=== PATIENT | male | born 1990 | race Caucasian/White ===

== ENCOUNTER 2018-03-04 23:06 | Emergency (ER) | payer OTHER, MEDICAID, SELFPAY ==
[2018-03-04 23:11] VITALS: BP 120/71; PULSE 107; RESP 18; TEMP 36.9; O2SAT 99
--- NOTE | 2018-03-04 23:14 | DI.RAD.S_ITS ---
PROCEDURE: XR CHEST 1V INDICATIONS: aspiration? TECHNIQUE: One view of the chest was acquired. COMPARISON: [facility], , CHEST 2 VIEW, 07/08/2017, 15:32. FINDINGS: Surgical changes and devices: None. Lungs and pleura: No pleural effusions or pneumothorax. Lungs are clear. Mediastinum: Mediastinal contours appear normal. Heart size is normal. Bones and chest wall: No suspicious bony lesions. Overlying soft tissues appear unremarkable. IMPRESSION: No acute process. Dictated by: Sherie Blair M.D. on 03/05/2018 at 9:29 Approved by: Sherie Blair M.D. on 03/05/2018 at 9:30
[2018-03-04 23:20] LABS: Hemoglobin 16.1 g/dL (13.5-17.5); Mean Corpuscular HGB Conc 34.3 % (30-36); Mean Corpuscular Hemoglobin 31.3 PG (26-34); Mean Corpuscular Volume 91.5 fL (80-100); Platelet Count 294 X10^3/uL (150-400); Red Blood Cell Count 5.14 X10^6/uL (4.5-5.9); Red Cell Distribution Width 12.2 % (11.6-14.8); White Blood Cell Count 10.1 X10^3/uL (4.5-11.0)
[2018-03-04 23:24] VITALS: BP 120/71; PULSE 107; RESP 18; TEMP 36.9; O2SAT 99
[2018-03-04 23:28] LABS: Alanine Aminotransferase 46 IU/L (21-72); Albumin 4.9 g/dL (3.5-5.0); Albumin Globulin Ratio 1.6 (1.0-2.8); Alkaline Phosphatase 50 U/L (38-126); Aspartate Aminotransferase 35 IU/L (17-59); BUN Creatinine Ratio 14.4 (6-22); Bilirubin Total 0.4 mg/dL (0.2-1.3); Blood Urea Nitrogen 13 mg/dL (9-20); Calcium 9.6 mg/dL (8.4-10.2); Carbon Dioxide 21 mmol/L (22-32); Chloride 110 mmol/L (98-107); Estimated Glomerular Filt Rate > 60.0 mL/min (>60); Glucose 105 mg/dL (70-100); HEMOLYSIS 30 (0-50); Potassium 3.7 mmol/L (3.4-5.1); Sodium 150 mmol/L (137-145); Total Protein 7.9 g/dL (6.3-8.2)
--- NOTE | 2018-03-04 23:28 | PC.NURSE ---
Pts girlfriend stated that 911 was called because when someone attempted to wake pt up he would fall back asleep. Pt has been drinking a lot per pts girlfriend.
[2018-03-04 23:29] VITALS: BP 122/66; PULSE 108; RESP 18; O2SAT 98
[2018-03-04 23:30] LABS: Ethanol (ETOH) 248 mg/dL
[2018-03-04 23:35] LABS: Urine Amphetamines Negative (Negative); Urine Barbiturates Negative (Negative); Urine Benzodiazepines Negative (Negative); Urine Cocaine Negative (Negative); Urine MDMA Negative (Negative); Urine Methadone Negative (Negative); Urine Methamphetamines Negative (Negative); Urine Morphine/Opi cutoff 2000 Negative (Negative); Urine Oxycodone Negative (Negative); Urine Phencyclidine Negative (Negative); Urine Tetrahydrocannabinol Negative (Negative); Urine Tricyclic Antidepressant Negative (Negative)
[2018-03-05] VITALS (14 sets, daily range): BP systolic 97–113; BP diastolic 49–70; PULSE 81–108; RESP 18–21; O2SAT 96–100
[2018-03-05] MEDS: SODIUM CHLORIDE 0.9% 1,000 ML 1000 ML IV (02:05)
--- NOTE | 2018-03-05 02:08 | PC.NURSE ---
pt medicated with zofran by OSMIN Cho.
--- NOTE | 2018-03-05 06:49 | ED.ALCOHOL ---
HPI - Alcohol General Chief Complaint: Toxicology Problem Stated Complaint: ETOH History of Present Illness HPI narrative: HPI 27-year-old male presents by EMS after reportedly consuming a large amount of alcohol or libertarian and being found unresponsive any bathroom, patient was intermittently and marginally responsive to voice and light touch per EMS, in the ambulance the patient apparently became combative and was given intramuscular ketamine with affect. Upon arrival the patient has sonorous respirations and is unresponsive to voice in touch. M/S/F/SocHx notable for: no known per EMS (obtain from bystanders/family). ROS: unable to obtain secondary to altered mentation. Exam Gen: nontoxic-appearing, no grossly apparent abnormalities. HEENT: NC, AT, PEERL, EOMI. Resp: coarse breath sounds bilaterally, otherwise clear to auscultation bilaterally, normal work of breathing, no accessory muscle usage. Card: Regular rate and rhythm with no murmurs, rubs, or gallops, extremities warm and well perfused. GI: no palpable abnormalities, no distention, no rebound, no guarding. : No suprapubic tenderness to palpation. MSK: No visible deformities, strength and tone without visually appreciable deficit. C, T, L spine without palpable abnormalities. Appendicular skeleton without palpable or visible abnormalities. All extremities warm and well perfused. Skin: Normal color with no visible lesions. Neuro: sedated Psych: unable to assess Labs / Imaging: WBC 10.1, HB 16.1, sodium 150, potassium 3.7, glucose 105, EtOH 248, UDS negative. CXR: No acute cardiopulmonary disease process. No focal infiltrate, cardiomegaly, rib fractures, or mediastinal widening, lung markings extend to the periphery bilaterally and there are no deep sulci. Radiologist's read pending. MDM Previous chart, nursing note, labs, imaging, and vitals reviewed. A: 27-year-old male presents by EMS after reportedly consuming a large amount of alcohol or libertarian and being found unresponsive any bathroom, patient was intermittently and marginally responsive to voice and light touch per EMS, in the ambulance the patient apparently became combative and was given intramuscular ketamine with effect. Labs consistent with reported toxidrome. Patient observed in the ED for 7.5 hours with clearance of the toxidrome. Patient clinically sober, and well-appearing at the time of discharge, denies any complaints. Impression: EtOH intoxication (please reference below for remainder of encounter information) Related Data Previous Rx's Medication Instructions Recorded prednisone 20 mg PO BID #10 tab 10/20/17 promethazine-codeine 5 - 10 ml PO Q4HP PRN #120 ml 10/20/17 Allergies Allergy/AdvReac Type Severity Reaction Status Date / Time amoxicillin [AMOXICILLIN] Allergy Severe HIVES Verified 03/04/18 23:24 Penicillins [PENICILLINS] Allergy Unknown Verified 03/04/18 23:24 Exam Initial Vital Signs Initial Vital Signs: Vital Signs Temperature 98.5 F 03/04/18 23:11 Pulse Rate 107 H 03/04/18 23:11 Respiratory Rate 18 03/04/18 23:11 Blood Pressure 120/71 03/04/18 23:11 Pulse Oximetry 99 03/04/18 23:11 Course Orders Ordered: ED Orders 03/04/18 22:50 Complete Blood Count NO DIFF Stat Comprehensive Metabolic Panel Stat Ethanol (ETOH) Stat 03/04/18 23:14 XR chest 1V Stat 03/04/18 23:25 Rapid Drug Screen, Urine Stat Discontinued Medications Sodium Chloride (Normal Saline 0.9%) 1,000 mls @ 1,000 mls/hr IV BOLUS ONE Stop: 03/05/18 02:44 Last Infusion: 03/05/18 04:00 Dose: 0 mls/hr Admin: 03/05/18 02:05 Dose: 1,000 mls/hr Vital Signs - 8 hr 03/04/18 23:11 03/04/18 23:24 03/04/18 23:29 Temperature 98.5 F 98.5 F Pulse Rate 107 H 107 H 108 H Respiratory Rate 18 18 18 Blood Pressure 120/71 Blood Pressure [Left Arm] 120/71 122/66 H Pulse Oximetry 99 99 98 03/05/18 00:07 03/05/18 00:30 03/05/18 00:56 Temperature Pulse Rate 100 H 108 H 105 H Respiratory Rate 19 21 Blood Pressure Blood Pressure [Left Arm] 106/49 L 108/68 110/52 L Pulse Oximetry 96 97 97 03/05/18 01:30 03/05/18 02:00 03/05/18 02:30 Temperature Pulse Rate 97 H 98 H 95 H Respiratory Rate 19 19 19 Blood Pressure Blood Pressure [Left Arm] 110/62 99/59 L 99/55 L Pulse Oximetry 100 100 100 03/05/18 03:00 03/05/18 03:30 03/05/18 04:00 Temperature Pulse Rate 96 H 83 82 Respiratory Rate 18 18 18 Blood Pressure Blood Pressure [Left Arm] 111/66 101/56 L 100/51 L Pulse Oximetry 97 96 98 03/05/18 04:40 Temperature Pulse Rate 81 Respiratory Rate 18 Blood Pressure Blood Pressure [Left Arm] 101/58 L Pulse Oximetry 99 MDM - Alcohol Lab Data Result diagrams: 03/04/18 22:50 03/04/18 22:50 Labs: Lab Results 03/04/18 03/04/18 03/04/18 Range/Units 22:50 22:50 23:25 WBC 10.1 (4.5-11.0) X10^3/uL RBC 5.14 (4.5-5.9) X10^6/uL Hgb 16.1 (13.5-17.5) g/dL Hct 47.0 (41-53) % MCV 91.5 (80-100) fL MCH 31.3 (26-34) PG MCHC 34.3 (30-36) % RDW 12.2 (11.6-14.8) % Plt Count 294 (150-400) X10^3/uL Sodium 150 H (137-145) mmol/L Potassium 3.7 (3.4-5.1) mmol/L Chloride 110 H (98-107) mmol/L Carbon Dioxide 21 L (22-32) mmol/L BUN 13 (9-20) mg/dL Creatinine 0.90 (0.66-1.25) mg/dL Estimated GFR > 60.0 (>60) mL/min BUN/Creatinine Ratio 14.4 (6-22) Glucose 105 H (70-100) mg/dL Calcium 9.6 (8.4-10.2) mg/dL Total Bilirubin 0.4 (0.2-1.3) mg/dL AST 35 (17-59) IU/L ALT 46 (21-72) IU/L Alkaline Phosphatase 50 (38-126) U/L Total Protein 7.9 (6.3-8.2) g/dL Albumin 4.9 (3.5-5.0) g/dL Globulin 3.0 (1.7-4.1) g/dL Albumin/Globulin Ratio 1.6 (1.0-2.8) Urine Opiates Screen Negative (Negative) Ur Oxycodone Screen Negative (Negative) Urine Methadone Screen Negative (Negative) Ur Barbiturates Screen Negative (Negative) U Tricyclic Antidepress Negative (Negative) Ur Phencyclidine Scrn Negative (Negative) Ur Amphetamines Screen Negative (Negative) U Methamphetamines Scrn Negative (Negative) Ur MDMA Scrn (Ecstasy) Negative (Negative) U Benzodiazepines Scrn Negative (Negative) Urine Cocaine Screen Negative (Negative) U Marijuana (THC) Screen Negative (Negative) Ethyl Alcohol 248 mg/dL Discharge Plan Departure Prescriptions: No Action prednisone 20 MG tablet 20 mg PO BID Qty: 10 RF: 0 promethazine-codeine 6.25 MG/10 MG syrup 5 - 10 ml PO Q4HP PRNQty: 120 RF: 0
[2018-03-05] MEDS: ONDANSETRON 4 MG ODT PREPACK 1 BOTTLE MISC (07:00)
== END 2018-03-05 07:04 | disposition home or self-care (01) ==
PROVIDERS: Emergency Provider Emergency Medicine; Family Provider Family Medicine; PCP Family Medicine
DX: F10.929 Alcohol use, unspecified with intoxication, unspecified (principal)
CPT/HCPCS: 71045; 80053; 80305; 80320; 85027; 94770; 96360; 96361; 99284; 99285; 99291

== ENCOUNTER 2018-03-18 13:20 | Emergency (ER) | payer OTHER, MEDICAID, SELFPAY ==
--- NOTE | 2018-03-18 13:26 | ED_ITS ---
HPI - Eye Problem <BJORN Copeland - Last Filed: 03/18/18 22:21> General Chief complaint: Eye Problems Stated complaint: Sharp pain in left eye Time Seen by Provider: 03/18/18 13:23 History of Present Illness HPI Narrative: Healthy 27-year-old male here for complaint of discomfort to his left eye. He states that he got some mulch into his eye accidentally an hour prior to arrival. He states that he flushed the eye afterwards and feels some discomfort to the left eye. He denies any visual changes. He denies any other trauma to the left eye. States his last tetanus was approximately 9-10 years ago. No other concerns or complaints MD chief complaint: eye pain Related Data Previous Rx's Medication Instructions Recorded prednisone 20 mg PO BID #10 tab 10/20/17 promethazine-codeine 5 - 10 ml PO Q4HP PRN #120 ml 10/20/17 erythromycin 0.5 inch EYE-LEFT QID 7 Days #1 03/18/18 gram Allergies Allergy/AdvReac Type Severity Reaction Status Date / Time amoxicillin [AMOXICILLIN] Allergy Severe HIVES Verified 03/04/18 23:24 Penicillins [PENICILLINS] Allergy Unknown Verified 03/04/18 23:24 Review of Systems <BJORN Copeland - Last Filed: 03/18/18 22:21> Constitutional Denies chills, Denies fever(s), Denies lethargy and Denies weakness Eyes Reports irritation ENT Ears, Nose, Mouth, and Throat: Denies change in voice, Denies neck pain and Denies sore throat Cardiovascular Denies chest pain, Denies irregular heart rhythm, Denies lightheadedness, Denies palpitations, Denies dyspnea, Denies dyspnea on exertion and Denies orthopnea Respiratory Denies cough, Denies dyspnea, Denies dyspnea on exertion and Denies wheezing Gastrointestinal Gastrointestinal: Denies abdominal pain, Denies change in bowel habits, Denies diarrhea, Denies nausea and Denies vomiting Genitourinary Denies hematuria, Denies flank pain, Denies urinary incontinence and Denies urinary urgency Musculoskeletal Denies neck pain Integumentary/Breasts Denies pruritus, Denies erythema, Denies rash and Denies wounds Neurologic Denies confusion and Denies weakness Psychiatric Denies anxiety, Denies confusion, Denies depression, Denies homicidal ideation and Denies suicidal ideation Endocrine Denies palpitations Hematologic/Lymphatic Denies easy bruising Allergic/Immunologic Denies wheezing Exam <BJORN Copeland - Last Filed: 03/18/18 22:21> Initial Vital Signs Initial Vital Signs: Vital Signs Temperature 98.5 F 03/18/18 13:31 Pulse Rate 77 03/18/18 13:31 Respiratory Rate 13 03/18/18 13:31 Blood Pressure 125/70 H 03/18/18 13:31 Pulse Oximetry 99 03/18/18 13:31 Const General: cooperative and well developed Nutritional Appearance: well nourished Orientation: alert, awake, oriented x3 and not confused HENCA Mouth: oral mucosae normal and moist mucous membranes Eyes General: appearance normal, both eyes and all related structures Eyelids: other (Left inner eyelid with irritation and redness) Conjunctivae: conjunctivae normal Cornea: corneas normal and fluorescein used Pupils: PERRL EOM: EOM intact bilaterally Other: Fluorescein exam was completed with no corneal abrasion or scleral abrasion appreciated. No foreign body is seen on exam Resp Effort & Inspection: normal respiratory effort, able to speak in complete sentences, no respiratory distress and no use of accessory muscles Auscultation: clear to auscultation bilaterally, no rales, no rhonchi and no wheezes Cardio Rate: regular rate Rhythm: regular rhythm Heart Sounds: no click, no gallops, no murmurs and no rubs Skin General: no rashes or lesions noted, No jaundice and No petechiae <Alan Reyes DO - Last Filed: 03/19/18 07:25> Initial Vital Signs Initial Vital Signs: Vital Signs Temperature 98.5 F 03/18/18 13:31 Pulse Rate 77 03/18/18 13:31 Respiratory Rate 13 03/18/18 13:31 Blood Pressure 125/70 H 03/18/18 13:31 Pulse Oximetry 99 03/18/18 13:31 Course <BJORN Copeland - Last Filed: 03/18/18 22:21> Orders Ordered: Discontinued Medications Diphtheria/Tetanus/Acell Pertussis (Adacel) 0.5 ml IM .ONCE ONE Stop: 03/18/18 14:04 Last Admin: 03/18/18 14:10 Dose: 0.5 ml Erythromycin (Erythromycin Ophth Oint) 1 applic EYE-LEFT NOW ONE Stop: 03/18/18 14:04 Last Admin: 03/18/18 14:11 Dose: 1 applic Proparacaine HCl (Parcaine 0.5% Ophth Katrin) 1 drops EYE-LEFT NOW ONE Stop: 03/18/18 13:38 Last Admin: 03/18/18 13:38 Dose: 1 drop Vital Signs - 8 hr 03/18/18 14:22 Pulse Rate 83 Respiratory Rate 14 Blood Pressure 122/74 H Pulse Oximetry 97 <Alan Reyes DO - Last Filed: 03/19/18 07:25> Orders Ordered: Discontinued Medications Diphtheria/Tetanus/Acell Pertussis (Adacel) 0.5 ml IM .ONCE ONE Stop: 03/18/18 14:04 Last Admin: 03/18/18 14:10 Dose: 0.5 ml Erythromycin (Erythromycin Ophth Oint) 1 applic EYE-LEFT NOW ONE Stop: 03/18/18 14:04 Last Admin: 03/18/18 14:11 Dose: 1 applic Proparacaine HCl (Parcaine 0.5% Ophth Katrin) 1 drops EYE-LEFT NOW ONE Stop: 03/18/18 13:38 Last Admin: 03/18/18 13:38 Dose: 1 drop Vital Signs - 8 hr 03/18/18 14:22 Pulse Rate 83 Respiratory Rate 14 Blood Pressure 122/74 H Pulse Oximetry 97 MDM - Eye Problem <BJORN Copeland - Last Filed: 03/18/18 22:21> MDM Narrative Medical decision making narrative: Fluorescein exam was completed left eye with no corneal abrasion or scleral abrasion appreciated. No foreign body was not appreciated on exam. Believe that foreign body was removed when he flushed the eye after incident. He does have irritation to the left upper inner eyelid. Tetanus was updated in the emergency room. He is prophylactically placed on erythromycin ointment. [id number] Tylenol Motrin as needed for any discomfort. Follow up with primary care provider in the next few days for re- evaluation. For any worsening symptoms return to the emergency room. Discharge Plan Departure Patient Disposition: Home, Self-Care Clinical Impression: Foreign body of left eye Discharge Date/Time: 03/18/18 14:23 Interventions: ED Discharge Assessment Last Done: 03/18/18 14:22 Instructions: DI for Foreign Body in the Eye Activity Restrictions/Additional Instructions: For no corneal abrasion or scleral abrasion was seen on exam. No foreign body was appreciated on exam. I believe that the foreign body was removed when he flushed the eye shortly after getting some moles into it. Tetanus was updated in the emergency room. Your placed on antibiotics to the left eye to prevent infection. Use [id number] Tylenol or Motrin as needed for discomfort. Follow up with her primary care provider in the next few days for re- evaluation. For any worsening symptoms return to the emergency room. Prescriptions: New erythromycin 5 mg/gram (0.5 %) ointment 0.5 inch EYE-LEFT QID 7 Days Qty: 1 RF: 0 No Action prednisone 20 MG tablet 20 mg PO BID Qty: 10 RF: 0 promethazine-codeine 6.25 MG/10 MG syrup 5 - 10 ml PO Q4HP PRNQty: 120 RF: 0 Referrals: Lance Good MD [Primary Care Provider] - Stand Alone Forms: Work/School Restrictions <Alan Reyes DO - Last Filed: 03/19/18 07:25> Cosign ED Attending Rosaature Attestation: I was available for consultation during this patient's emergency department encounter
[2018-03-18 13:31] VITALS: BP 125/70; PULSE 77; RESP 13; TEMP 36.9; O2SAT 99
[2018-03-18] MEDS: PROPARACAINE 0.5% OPHTH SOL 1 DROPS EYE-LEFT (13:38)
[2018-03-18] MEDS: TET,DIPH,PERTUSS(ACELL),VAC/PF 0.5 ML SYRINGE IM (14:10)
[2018-03-18] MEDS: ERYTHROMYCIN OPHTH 1 GM OINT 1 APPLIC EYE-LEFT (14:11)
[2018-03-18 14:22] VITALS: BP 122/74; PULSE 83; RESP 14; O2SAT 97
== END 2018-03-18 14:23 | disposition home or self-care (01) ==
PROVIDERS: Emergency Provider Nurse Practitioner Family; Family Provider Family Medicine; PCP Family Medicine
DX: T15.92XA Foreign body on external eye, part unspecified, left eye, initial encounter (principal); W20.8XXA Other cause of strike by thrown, projected or falling object, initial encounter
CPT/HCPCS: 90471; 99283; 90715

== ENCOUNTER 2018-04-22 14:14 | Emergency (ER) | payer OTHER, MEDICAID, SELFPAY ==
[2018-04-22 14:39] VITALS: PULSE 74; RESP 16; TEMP 37.1; O2SAT 100; BMI 31.3
[2018-04-22 14:44] VITALS: BP 119/79; PULSE 74; RESP 16; TEMP 37.1; O2SAT 100; BMI 31.3
--- NOTE | 2018-04-22 17:11 | ED_ITS ---
HPI - Trauma <BJORN Copeland - Last Filed: 04/22/18 23:12> General Chief Complaint: Trauma Stated Complaint: RIB INJURY Time Seen by Provider: 04/22/18 17:10 Source: patient Mode of arrival: ambulatory Limitations: no limitations History of Present Illness HPI narrative: [age] year her old male here for complaint to pain into the right lateral ribcage area/right upper quadrant area status post fall earlier today. He states that he slipped while he was on a trailer causing him to land on his right side. Stated that this happened earlier this afternoon. He denies any head injuries. No loss of consciousness. Patient was ambulatory into the emergency room. He denies any other injuries or concerns at this point. He denies any abdominal pain. complaint: fall Related Data Previous Rx's Medication Instructions Recorded prednisone 20 mg PO BID #10 tab 10/20/17 promethazine-codeine 5 - 10 ml PO Q4HP PRN #120 ml 10/20/17 hydrocodone-acetaminophen 1 tab PO Q4H PRN #10 tab 04/22/18 Allergies Allergy/AdvReac Type Severity Reaction Status Date / Time amoxicillin [AMOXICILLIN] Allergy Severe HIVES Verified 04/22/18 14:38 Penicillins [PENICILLINS] Allergy Unknown Verified 04/22/18 14:38 Review of Systems <BJORN Copeland - Last Filed: 04/22/18 23:12> Constitutional Denies chills, Denies fever(s), Denies lethargy and Denies weakness Eyes Denies change in vision, Denies eye discharge, Denies irritation and Denies loss of vision ENT Ears, Nose, Mouth, and Throat: Denies change in voice, Denies neck pain and Denies sore throat Cardiovascular Denies chest pain, Denies irregular heart rhythm, Denies lightheadedness, Denies palpitations, Denies dyspnea, Denies dyspnea on exertion and Denies orthopnea Respiratory Denies cough, Denies dyspnea, Denies dyspnea on exertion and Denies wheezing Gastrointestinal Gastrointestinal: Denies abdominal pain, Denies change in bowel habits, Denies diarrhea, Denies nausea and Denies vomiting Genitourinary Denies hematuria, Denies flank pain, Denies urinary incontinence and Denies urinary urgency Musculoskeletal Denies neck pain Comments: Pain into right lateral ribcage status post ground level fall with abrasion Integumentary/Breasts Denies pruritus, Denies erythema, Denies rash and Denies wounds Neurologic Denies confusion, Denies loss of vision and Denies weakness Psychiatric Denies anxiety, Denies confusion, Denies depression, Denies homicidal ideation and Denies suicidal ideation Endocrine Denies palpitations Hematologic/Lymphatic Denies easy bruising Allergic/Immunologic Denies wheezing Exam <BJORN Copeland - Last Filed: 04/22/18 23:12> Initial Vital Signs Initial Vital Signs: Vital Signs Temperature 98.7 F 04/22/18 14:39 Pulse Rate 74 04/22/18 14:39 Respiratory Rate 16 04/22/18 14:39 Pulse Oximetry 100 04/22/18 14:39 Const General: cooperative and well developed Nutritional Appearance: well nourished Orientation: alert, awake, oriented x3 and not confused HENMT Mouth: oral mucosae normal and moist mucous membranes Eyes Conjunctivae: conjunctivae normal Sclera: sclerae normal Pupils: PERRL EOM: EOM intact bilaterally Chest Other: Abrasion approximately 6 cm x 3 cm to the right lateral lower rib cage/ lateral right upper quadrant. No swelling to the area. No ecchymosis. No deformities to the ribcage. No tenderness to the abdominal area other than the abrasion. Tenderness on palpation to the lower ribcage Resp Effort & Inspection: normal respiratory effort, able to speak in complete sentences, no respiratory distress and no use of accessory muscles Auscultation: clear to auscultation bilaterally, no rales, no rhonchi and no wheezes Cardio Rate: regular rate Rhythm: regular rhythm Heart Sounds: no click, no gallops, no murmurs and no rubs GI Inspection: non-distended Palpation: soft, no hepatosplenomegaly, No guarding, No pulsatile mass and No tender Auscultation: normal bowel sounds Other: Abrasion to the right lower lateral rib cage/right upper quadrant area. No abdominal tenderness. Other than localized pain into the abrasion no ecchymosis. No swelling General: No CVA tenderness Skin General: no rashes or lesions noted, No jaundice and No petechiae Neuro General: alert, oriented x3, gait normal and no focal motor deficits Speech: speech normal <Hiren Sabillon MD - Last Filed: 04/23/18 04:53> Initial Vital Signs Initial Vital Signs: Vital Signs Temperature 98.7 F 04/22/18 14:39 Pulse Rate 74 04/22/18 14:39 Respiratory Rate 16 04/22/18 14:39 Pulse Oximetry 100 04/22/18 14:39 Course <BJORN Copeland - Last Filed: 04/22/18 23:12> Orders Ordered: Discontinued Medications Hydrocodone Bitart/Acetaminophen ([place] 5/325) 1 tab PO NOW ONE Stop: 04/22/18 18:30 Last Admin: 04/22/18 18:33 Dose: 1 tab Hydrocodone Bitart/Acetaminophen (Vicodin Prepack) 1 bottle MISC SEEINSTR ONE Stop: 04/22/18 19:06 Last Admin: 04/22/18 19:10 Dose: 1 bottle Vital Signs - 8 hr 04/22/18 18:59 Pulse Rate 69 Respiratory Rate 16 Blood Pressure [Right Arm] 124/62 H Pulse Oximetry 98 <Hiren Sabillon MD - Last Filed: 04/23/18 04:53> Orders Ordered: Discontinued Medications Hydrocodone Bitart/Acetaminophen ([place] 5/325) 1 tab PO NOW ONE Stop: 04/22/18 18:30 Last Admin: 04/22/18 18:33 Dose: 1 tab Hydrocodone Bitart/Acetaminophen (Vicodin Prepack) 1 bottle MISC SEEINSTR ONE Stop: 04/22/18 19:06 Last Admin: 04/22/18 19:10 Dose: 1 bottle Vital Signs - 8 hr 04/22/18 18:59 Pulse Rate 69 Respiratory Rate 16 Blood Pressure [Right Arm] 124/62 H Pulse Oximetry 98 MDM - Trauma <BJORN Copeland - Last Filed: 04/22/18 23:12> Imaging Data Chest x-ray: Radiologist's impression: Patient: Ryan Hobson MR#: [id number] : 1990 Acct:[id number] Age/Sex: 27 / M Date of Service: 03/04/18 Loc: ED Accession Number: [id number] Procedure: XR chest 1V Ordering Provider: Manjeet Blackwell M.D. PROCEDURE: XR CHEST 1V INDICATIONS: aspiration? TECHNIQUE: One view of the chest was acquired. COMPARISON: [facility], , CHEST 2 VIEW, 07/08/2017, 15:32. FINDINGS: Surgical changes and devices: None. Lungs and pleura: No pleural effusions or pneumothorax. Lungs are clear. Mediastinum: Mediastinal contours appear normal. Heart size is normal. Bones and chest wall: No suspicious bony lesions. Overlying soft tissues appear unremarkable. IMPRESSION: No acute process. Dictated by: Sherie Blair M.D. on 03/05/2018 at 9:29 Approved by: Sherie Blair M.D. on 03/05/2018 at 9:30 [facility] Narrative Medical decision making narrative: Chest x-ray was obtained was negative for any acute fractures or findings. Abdominal palpation was nontender with exception to hurt to the abrasion area to the lateral rib cage/right upper quadrant area. Signs and symptoms presents as contusion to the area. Over-the- counter Tylenol or Motrin as needed for any discomfort. Small amount of [place] is prescribed for breakthrough pain. For any worsening symptoms such as worsening abdominal pain or swelling to the area return to the emergency room. Follow up with primary care provider next week. Discharge Plan Departure Patient Disposition: Home, Self-Care Clinical Impression: Contusion of rib on right side Discharge Date/Time: 04/22/18 19:13 Interventions: ED Discharge Assessment Last Done: 04/22/18 19:13 Instructions: DI for Rib Contusion Activity Restrictions/Additional Instructions: X-ray of the chest was obtained was negative for any acute fractures. Signs and symptoms presents as contusion to the right ribcage area. Use over-the- counter Tylenol and/or Motrin as needed for any discomfort. Small amount of [place] is prescribed for breakthrough pain. Rest area. Follow up with primary care provider next week. For any worsening symptoms such as worsening pain or swelling or discoloration of the abdomen return to the emergency room. Prescriptions: New hydrocodone-acetaminophen 5-325 mg tablet 1 tab PO Q4H PRN (Reason: pain) Qty: 10 RF: 0 No Action prednisone 20 MG tablet 20 mg PO BID Qty: 10 RF: 0 promethazine-codeine 6.25 MG/10 MG syrup 5 - 10 ml PO Q4HP PRNQty: 120 RF: 0 Referrals: Lance Good MD [Primary Care Provider] - Stand Alone Forms: Work/School Restrictions <Hiren Sabillon MD - Last Filed: 04/23/18 04:53> Cosign ED Attending Rosaature Attestation: I was available in the ER for verbal consultation, or to evaluate the patient directly if needed. I agree with the evaluation and the treatment plan.
--- NOTE | 2018-04-22 17:38 | DI.RAD.S_ITS ---
PROCEDURE: XR RIBS RT MIN 3V W CXR 1V INDICATIONS: injury, pain TECHNIQUE: 2 views of the right ribs were acquired, along with a single view chest. [facility] 15[facility]ST [facility], 03/04/2018, 23:30. FINDINGS: Surgical changes and devices: None. Bones and chest wall: No fractures or dislocations. No suspicious bony lesions. Overlying soft tissues appear unremarkable. Lungs and pleura: No pleural effusions or pneumothorax. Lungs appear clear. Mediastinum: Mediastinal contours appear normal. Heart size is normal. IMPRESSION: No displaced right rib fractures. Dictated by: Tim King M.D. on 04/22/2018 at 18:33 Approved by: Tim King M.D. on 04/22/2018 at 18:35
[2018-04-22] MEDS: HYDROCODONE/ACET 5/325 TABLET 1 TAB PO (18:33)
[2018-04-22 18:59] VITALS: BP 124/62; PULSE 69; RESP 16; O2SAT 98
[2018-04-22] MEDS: HYDROCODONE/ACET 5/325 PREPACK 1 BOTTLE MISC (19:10)
== END 2018-04-22 19:13 | disposition home or self-care (01) ==
PROVIDERS: Emergency Provider Nurse Practitioner Family; Family Provider Family Medicine; PCP Family Medicine
DX: S20.211A Contusion of right front wall of thorax, initial encounter (principal); W19.XXXA Unspecified fall, initial encounter
CPT/HCPCS: 71101; 99283

== ENCOUNTER 2018-08-05 08:08 | Emergency (ER) | payer MEDICAID, SELFPAY ==
[2018-08-05 08:11] VITALS: BP 124/53; PULSE 75; RESP 16; TEMP 36.7; O2SAT 99
--- NOTE | 2018-08-05 08:35 | DI.RAD.S_ITS ---
PROCEDURE: XR TOE LT MIN 2V INDICATIONS: big toe injury TECHNIQUE: 3 views of the first toe(s) acquired. COMPARISON: None. FINDINGS: Bones: No fractures or dislocations. No suspicious bony lesions. There is a large osteophyte at the base of the first distal phalanx. Soft tissues: No suspicious soft tissue densities. IMPRESSION: No fractures or dislocation. Dictated by: Tim King M.D. on 08/05/2018 at 9:28 Approved by: Tim King M.D. on 08/05/2018 at 9:31
--- NOTE | 2018-08-05 08:37 | ED.LOWEXIN ---
HPI - Extremity Injury (Lower) General Chief Complaint: Extremity Injury, Lower Stated Complaint: sharp pain in left foot, big toe Time Seen by Provider: 08/05/18 08:26 Source: patient Mode of arrival: ambulatory Limitations: no limitations History of Present Illness HPI Narrative: Patient is a 27-year-old male who presents with left toe pain. He was working outside when he thinks he slipped in the mud and maybe injured it. He was able to walk on it afterwards however last night he woke up in severe pain at the base of the big toe. He now is unable to put weight on his big toe but he is still able to move it. No numbness or tingling. Related Data Previous Rx's Medication Instructions Recorded prednisone 20 mg PO BID #10 tab 10/20/17 promethazine-codeine 5 - 10 ml PO Q4HP PRN #120 ml 10/20/17 hydrocodone-acetaminophen 1 tab PO Q4H PRN #10 tab 04/22/18 Allergies Allergy/AdvReac Type Severity Reaction Status Date / Time amoxicillin [AMOXICILLIN] Allergy Severe HIVES Verified 04/22/18 14:38 Penicillins [PENICILLINS] Allergy Unknown Verified 04/22/18 14:38 Review of Systems Review of Systems GENERAL: Denies chills,fever HEENT: Denies throat pain RESPIRATORY: Denies dyspnea, cough, wheezing CARDIOVASCULAR: Denies chest pain, palpitations GASTROINTESTINAL: Denies nausea, vomiting MUSCULOSKELETAL: see HPI SKIN: No rash, no laceration, no pruritus NEUROLOGIC: Denies weakness, dizziness, headache, numbness 8 point review of systems is negative except for those stated above and HPI PFSH Medical History Healthy adult (Acute) Social History Smoking Status: Never smoker Exam Initial Vital Signs Initial Vital Signs: Vital Signs Temperature 98.1 F 08/05/18 08:11 Pulse Rate 75 08/05/18 08:11 Respiratory Rate 16 08/05/18 08:11 Blood Pressure 124/53 L 08/05/18 08:11 Pulse Oximetry 99 08/05/18 08:11 GENERAL: Well-appearing, well-nourished and in no acute distress. CARDIOVASCULAR: peripheral pulses in tact, cap refill <2 sec RESPIRATORY: No respiratory distress, speaks in full sentences without difficulty EXTREMITIES: Normal range of motion, no clubbing or edema. Neurovascularly intact Pain at base of big toe no gross bony deformity cap refill intact no midfoot pain or ankle pain NEUROLOGICAL: Cranial nerves II through XII grossly intact. Normal gait and speech. SKIN: Warm, dry, no petechiae, no rashes or lesions. Course Orders Ordered: ED Orders 08/05/18 08:35 XR toe LT min 2V Stat Vital Signs - 8 hr 08/05/18 08:11 Temperature 98.1 F Pulse Rate 75 Respiratory Rate 16 Blood Pressure 124/53 L Pulse Oximetry 99 MDM - Extremity Injury (Lower) Imaging Data left toe xray: Attestation: I personally reviewed and interpreted this imaging study as follows: My impression: No fracture Radiologist's impression: Patient: Ryan Hobson GMR#: [id number] : 1990Acct:[id number] Age/Sex: 27 / MDate of Service: 08/05/18 Loc: ED Accession Number: [id number] Procedure: XR toe LT min 2V Ordering Provider: Xi Reynoso D.O. PROCEDURE: XR TOE LT MIN 2V INDICATIONS: big toe injury TECHNIQUE: 3 views of the first toe(s) acquired. COMPARISON: None. FINDINGS: Bones: No fractures or dislocations. No suspicious bony lesions. There is a large osteophyte at the base of the first distal phalanx. Soft tissues: No suspicious soft tissue densities. IMPRESSION: No fractures or dislocation. Dictated by: Tim King M.D. on 08/05/2018 at 9:28 Discharge Plan Departure Patient Disposition: Home Clinical Impression: Sprain of toe, great, left Discharge Date/Time: 08/05/18 09:11 Interventions: ED Discharge Assessment Last Done: 08/05/18 09:11 Instructions: DI for Toe Sprain Activity Restrictions/Additional Instructions: *You have been diagnosed with left big toe sprain *What to do: Wear supportive shoes, rest, elevate, ice, increased movement as tolerated *Continue to take medications as directed -ibuprofen 800 mg every 8 hr if needed for pain with food *Follow up with your primary care provider in 2-3 days *Return to ER if you should have numbness, tingling, worsening pain or any new, worsening or concerning symptoms Prescriptions: No Action prednisone 20 MG tablet 20 mg PO BID Qty: 10 RF: 0 promethazine-codeine 6.25 MG/10 MG syrup 5 - 10 ml PO Q4HP PRNQty: 120 RF: 0 hydrocodone-acetaminophen 5-325 mg tablet 1 tab PO Q4H PRN (Reason: pain) Qty: 10 RF: 0
--- NOTE | 2018-08-08 14:46 | PC.NURSE ---
call back, feeling better, states, has bone spur,and aware if worsen to follow up with primary.
== END 2018-08-05 09:11 | disposition home or self-care (01) ==
PROVIDERS: Emergency Provider Emergency Medicine; Family Provider Family Medicine; PCP Family Medicine
DX: S93.502A Unspecified sprain of left great toe, initial encounter (principal); W22.8XXA Striking against or struck by other objects, initial encounter
CPT/HCPCS: 73660; 99282; 99283

== ENCOUNTER 2019-02-27 17:36 | Emergency (ER) | payer OTHER, SELFPAY ==
--- NOTE | 2019-02-27 17:40 | DI.US.S_ITS ---
PROCEDURE: US SCROTUM INDICATIONS: LEFT SCROTAL PAIN TECHNIQUE: Real-time scanning was performed of the scrotum and testicles, with image documentation. Color and pulse Doppler interrogation was performed of both testicles. COMPARISON: None. FINDINGS: Right: Testicle is normal in size at 5.4 x 2.9 x 3.5 cm, and homogenous in echotexture. Epididymis is normal in overall size and morphology. No hydrocele or varicoceles. Overlying scrotal skin is normal in thickness. Left: Testicle is normal in size at 5.3 x 2.6 x 2.9 cm, and homogeneous in echotexture. Epididymis is normal in overall size and morphology. No hydrocele or varicoceles. Overlying scrotal skin is normal in thickness. Doppler: Color and pulse Doppler demonstrate normal and symmetric arterial flow in both testicles. IMPRESSION: Negative scrotal ultrasound. No explanation for left scrotal pain. Dictated by: Sherie Blair M.D. on 02/27/2019 at 18:38 Approved by: Sherie Blair M.D. on 02/27/2019 at 18:39
[2019-02-27 17:45] VITALS: BP 136/88; PULSE 88; RESP 18; TEMP 36.9; O2SAT 98; BMI 31.6
--- NOTE | 2019-02-27 19:03 | ED.MALEGU ---
HPI - Male Genitourinary <SOMMER Zavaleta - Last Filed: 02/27/19 20:21> General Chief complaint: Urogenital-Male Stated complaint: LEFT TESTICULAR PAIN RADIATING TO STOMACH Time Seen by Provider: 02/27/19 17:38 Source: patient Mode of arrival: ambulatory Limitations: no limitations History of Present Illness HPI Narrative: The patient is a 28-year-old male nonsmoker with history of vasectomy who comes in with a chief complaint of left testicle pain. He states it has been going on and off for years but has been consistent over the past 3 days. He denies any dysuria urgency frequency. He denies any concern for sexually transmitted infections. Denies any penile discharge or rash. His any fevers nausea vomiting or diarrhea. States that his testicle pain radiated up to his lower abdomen when it was really bad. Denies any current abdominal pain nausea vomiting or diarrhea. Related Data Allergies Allergy/AdvReac Type Severity Reaction Status Date / Time amoxicillin [AMOXICILLIN] Allergy Severe HIVES Verified 02/27/19 17:45 Penicillins [PENICILLINS] Allergy Unknown Verified 02/27/19 17:45 Review of Systems <SOMMER Zavaleta - Last Filed: 02/27/19 20:21> Review of Systems GENERAL: Denies chills, fatigue, malaise, fever, sweats. HEENT: Denies sinus pain, ear pain, sore throat, difficulty swallowing, dizziness. RESPIRATORY: Denies dyspnea, cough, wheezing, hemoptysis, sputum. CARDIOVASCULAR: Denies chest pain, palpitations, orthopnea, edema, GASTROINTESTINAL: Denies nausea, vomiting, abdominal pain, diarrhea, constipation, melena. : See HPI MUSCULOSKELETAL: denies weakness, joint pain, or bony pain SKIN: Denies rash, skin lesions, or other NEUROLOGIC: Denies weakness, headache, numbness, change in speech, confusion, seizures, incoordination. PSYCHIATRIC: No concerning psychosocial issues. 12 point review of systems is negative except for those stated above PFSH <SOMMER Zavaleta - Last Filed: 02/27/19 20:21> Medical History Healthy adult (Acute) Social History Smoking Status: Never smoker Social History Smoking Status: Never smoker Exam <SOMMER Zavaleta - Last Filed: 02/27/19 20:21> Narrative Exam Narrative: GENERAL: This is a well-nourished, well-developed patient, no acute distress HEAD: Atraumatic. Normocephalic. No temporal or scalp tenderness. EYES: Pupils equal round and reactive. Extraocular motions intact. No scleral icterus. No injection or drainage. ENT: Nose without bleeding, purulent drainage or septal hematoma. Throat without erythema, tonsillar hypertrophy or exudate. Uvula midline. Airway patent. NECK: Trachea midline. No JVD or lymphadenopathy. Supple, nontender, no meningeal signs. CARDIOVASCULAR: Regular rate and rhythm without murmurs, gallops, or rubs. RESPIRATORY: Clear to auscultation. Breath sounds equal bilaterally. No wheezes, rales, or rhonchi. No cough. No increased respiratory effort. No accessory muscle use. GASTROINTESTINAL: Abdomen soft, non-tender, nondistended. No hepato-splenomegaly, or palpable masses. No guarding. Active bowel sounds all 4 quadrants. EXTREMITIES: No clubbing, cyanosis, or edema. No joint tenderness, effusion, or edema noted. BACK: Nontender without deformity or crepitance. No flank tenderness. NEURO: AOx3. SKIN: No rash or erythema. No erythema or abrasion laceration wounds or rash noted On genitals. : Exam done with Alex SOLORIO as phone counselor. Slight pain to palpation left testicle. Positive cremasteric reflexes bilaterally Initial Vital Signs Initial Vital Signs: Vital Signs Temperature 98.4 F 02/27/19 17:45 Pulse Rate 88 02/27/19 17:45 Respiratory Rate 18 02/27/19 17:45 Blood Pressure 136/88 02/27/19 17:45 Pulse Oximetry 98 02/27/19 17:45 <iX Reynoso DO - Last Filed: 02/28/19 03:38> Initial Vital Signs Initial Vital Signs: Vital Signs Temperature 98.4 F 02/27/19 17:45 Pulse Rate 88 02/27/19 17:45 Respiratory Rate 18 02/27/19 17:45 Blood Pressure 136/88 02/27/19 17:45 Pulse Oximetry 98 02/27/19 17:45 Course <SOMMER Zavaleta - Last Filed: 02/27/19 20:21> Orders Ordered: Discontinued Medications Ketorolac Tromethamine (Toradol) 60 mg IM NOW ONE Stop: 02/27/19 19:03 Last Admin: 02/27/19 19:04 Dose: 60 mg Vital Signs - 8 hr 02/27/19 17:45 02/27/19 19:09 Temperature 98.4 F 98.4 F Pulse Rate 88 73 Respiratory Rate 18 16 Blood Pressure 136/88 Blood Pressure [R Arm] 132/65 Pulse Oximetry 98 98 <Xi Reynoso DO - Last Filed: 02/28/19 03:38> Orders Ordered: Discontinued Medications Ketorolac Tromethamine (Toradol) 60 mg IM NOW ONE Stop: 02/27/19 19:03 Last Admin: 02/27/19 19:04 Dose: 60 mg Vital Signs - 8 hr 02/27/19 17:45 02/27/19 19:09 Temperature 98.4 F 98.4 F Pulse Rate 88 73 Respiratory Rate 18 16 Blood Pressure 136/88 Blood Pressure [R Arm] 132/65 Pulse Oximetry 98 98 MDM - Male Genitourinary <SOMMER Zavaleta - Last Filed: 02/27/19 20:21> Lab Data Lab Results 02/27/19 Range/Units 17:55 Ur Chlamydia DNA (PCR) Not detected N gonorrhoeae DNA (PCR) Not detected Urine Dip Bedside Urine Glucose Negative Bedside Urine Bilirubin + 1 Bedside Urine Ketone - Negative Urine Specific [place] 1.015 Bedside Urine Occult Blood - Negative Bedside Urine pH 7.5 Bedside Urine Protein +/- 15 Bedside Urine Urobilinogen 1+ 2mg Bedside Urine Nitrite - Negative Bedside Urine Leukocytes - Negative Esterase Imaging Data Scrotum ultrasound: Radiologist's impression: Ryan Hobson 28 M [address] [address] Ultrasound Report Signed Patient: LeydaRyan rogel GMR#: [id number] : 1990Acct:[id number] Age/Sex: MDate of Service: 02/27/19 Loc: ED Accession Number: [id number] Procedure: US scrotum Ordering Provider: Neena Cain PROCEDURE: US SCROTUM INDICATIONS: LEFT SCROTAL PAIN TECHNIQUE: Real-time scanning was performed of the scrotum and testicles, with image documentation. Color and pulse Doppler interrogation was performed of both testicles. COMPARISON: None. FINDINGS: Right: Testicle is normal in size at 5.4 x 2.9 x 3.5 cm, and homogenous in echotexture. Epididymis is normal in overall size and morphology. No hydrocele or varicoceles. Overlying scrotal skin is normal in thickness. Left: Testicle is normal in size at 5.3 x 2.6 x 2.9 cm, and homogeneous in echotexture. Epididymis is normal in overall size and morphology. No hydrocele or varicoceles. Overlying scrotal skin is normal in thickness. Doppler: Color and pulse Doppler demonstrate normal and symmetric arterial flow in both testicles. IMPRESSION: Negative scrotal ultrasound. No explanation for left scrotal pain. Dictated by: Sherie Blair M.D. on 02/27/2019 at 18:38 Approved by: Sherie Blair M.D. on 02/27/2019 at 18:39 MDM Narrative Medical decision making narrative: The patient is a 28-year-old male who presents with testicular pain. He states this has been going on and off for years, worse over the past several days. He has a negative UA, negative his gonorrhea chlamydia and a normal ultrasound. His pain responded very well to the Toradol. He does not have an acute exam. Discussed at length continued anti-inflammatories as well as following up with primary care provider. Discussed coming back to the emergency department for any acute findings. Patient has no questions or concerns upon discharge. <Xi Reynoso, - Last Filed: 02/28/19 03:38> Lab Data Lab Results 02/27/19 Range/Units 17:55 Ur Chlamydia DNA (PCR) Not detected N gonorrhoeae DNA (PCR) Not detected Urine Dip Bedside Urine Glucose Negative Bedside Urine Bilirubin + 1 Bedside Urine Ketone - Negative Urine Specific [place] 1.015 Bedside Urine Occult Blood - Negative Bedside Urine pH 7.5 Bedside Urine Protein +/- 15 Bedside Urine Urobilinogen 1+ 2mg Bedside Urine Nitrite - Negative Bedside Urine Leukocytes - Negative Esterase Discharge Plan Departure Patient Disposition: Home Clinical Impression: Left testicular pain Discharge Date/Time: 02/27/19 20:22 Interventions: ED Discharge Assessment Last Done: 02/27/19 20:22 Activity Restrictions/Additional Instructions: Your ultrasound came back with no acute findings today. Your urine test came back negative. Please follow up with a primary care provider. Please come back to the emergency department for any acute concerns. I suggest using NSAIDs such as ibuprofen. Wait 8 hours before you take a dose after her dose in the emergency department. Referrals: Lance Good MD [Primary Care Provider] - <Xi Reynoso DO - Last Filed: 02/28/19 03:38> Cosign ED Attending Floridalma Attestation: I was immediately available in the department for consultation. Documentation has been reviewed. I agree with assessment and plan.
[2019-02-27] MEDS: KETOROLAC 60 MG/2 ML VIAL IM (19:04)
[2019-02-27 19:09] VITALS: BP 132/65; PULSE 73; RESP 16; TEMP 36.9; O2SAT 98
[2019-02-27 19:54] LABS: Urine N gonorrhoeae NOT DETECTED
[2019-02-27 19:58] LABS: Urine Chlamydia NOT DETECTED
--- NOTE | 2019-02-27 20:21 | ED_ITS ---
HPI - Male Genitourinary <SOMMER Zavaleta - Last Filed: 02/27/19 20:21> General Chief complaint: Urogenital-Male Stated complaint: LEFT TESTICULAR PAIN RADIATING TO STOMACH Time Seen by Provider: 02/27/19 17:38 Source: patient Mode of arrival: ambulatory Limitations: no limitations History of Present Illness HPI Narrative: The patient is a 28-year-old male nonsmoker with history of v asectomy who comes in with a chief complaint of left testicle pain. He states it has been going on and off for years but has been consistent over the past 3 days. He denies any dysuria urgency frequency. He denies any concern for sexually transmitted infections. Denies any penile discharge or rash. His any fevers nausea vomiting or diarrhea. States that his testicle pain radiated up to his lower abdomen when it was really bad. Denies any current abdominal pain nausea vomiting or diarrhea. Related Data Allergies Allergy/AdvReac Type Severity Reaction Status Date / Time amoxicillin [AMOXICILLIN] Allergy Severe HIVES Verified 02/27/19 17:45 Penicillins [PENICILLINS] Allergy Unknown Verified 02/27/19 17:45 Review of Systems <SOMMER Zavaleta - Last Filed: 02/27/19 20:21> Review of Systems GENERAL: Denies chills, fatigue, malaise, fever, sweats. HEENT: Denies sinus pain, ear pain, sore throat, difficulty swallowing, dizziness. RESPIRATORY: Denies dyspnea, cough, wheezing, hemoptysis, sputum. CARDIOVASCULAR: Denies chest pain, palpitations, orthopnea, edema, GASTROINTESTINAL: Denies nausea, vomiting, abdominal pain, diarrhea, constipation, melena. : See HPI MUSCULOSKELETAL: denies weakness, joint pain, or bony pain SKIN: Denies rash, skin lesions, or other NEUROLOGIC: Denies weakness, headache, numbness, change in speech, confusion, seizures, incoordination. PSYCHIATRIC: No concerning psychosocial issues. 12 point review of systems is negative except for those stated above PFSH <SOMMER Zavaleta - Last Filed: 02/27/19 20:21> Medical History Healthy adult (Acute) Social History Smoking Status: Never smoker Social History Smoking Status: Never smoker Exam <SOMMER Zavaleta - Last Filed: 02/27/19 20:21> Narrative Exam Narrative: GENERAL: This is a well-nourished, well-developed patient, no acute distress HEAD: Atraumatic. Normocephalic. No temporal or scalp tenderness. EYES: Pupils equal round and reactive. Extraocular motions intact. No scleral icterus. No injection or drainage. ENT: Nose without bleeding, purulent drainage or septal hematoma. Throat without erythema, tonsillar hypertrophy or exudate. Uvula midline. Airway patent. NECK: Trachea midline. No JVD or lymphadenopathy. Supple, nontender, no meningeal signs. CARDIOVASCULAR: Regular rate and rhythm without murmurs, gallops, or rubs. RESPIRATORY: Clear to auscultation. Breath sounds equal bilaterally. No wheezes, rales, or rhonchi. No cough. No increased respiratory effort. No accessory muscle use. GASTROINTESTINAL: Abdomen soft, non-tender, nondistended. No hepato- splenomegaly, or palpable masses. No guarding. Active bowel sounds all 4 quadrants. EXTREMITIES: No clubbing, cyanosis, or edema. No joint tenderness, effusion, or edema noted. BACK: Nontender without deformity or crepitance. No flank tenderness. NEURO: AOx3. SKIN: No rash or erythema. No erythema or abrasion laceration wounds or rash noted On genitals. : Exam done with Alex SOLORIO as used car make ready mechanic. Slight pain to palpation left testicle. Positive cremasteric reflexes bilaterally Initial Vital Signs Initial Vital Signs: Vital Signs Temperature 98.4 F 02/27/19 17:45 Pulse Rate 88 02/27/19 17:45 Respiratory Rate 18 02/27/19 17:45 Blood Pressure 136/88 02/27/19 17:45 Pulse Oximetry 98 02/27/19 17:45 <Xi Reynoso DO - Last Filed: 02/28/19 03:38> Initial Vital Signs Initial Vital Signs: Vital Signs Temperature 98.4 F 02/27/19 17:45 Pulse Rate 88 02/27/19 17:45 Respiratory Rate 18 02/27/19 17:45 Blood Pressure 136/88 02/27/19 17:45 Pulse Oximetry 98 02/27/19 17:45 Course <SOMMER Zavaleta - Last Filed: 02/27/19 20:21> Orders Ordered: Discontinued Medications Ketorolac Tromethamine (Toradol) 60 mg IM NOW ONE Stop: 02/27/19 19:03 Last Admin: 02/27/19 19:04 Dose: 60 mg Vital Signs - 8 hr 02/27/19 17:45 02/27/19 19:09 Temperature 98.4 F 98.4 F Pulse Rate 88 73 Respiratory Rate 18 16 Blood Pressure 136/88 Blood Pressure [R Arm] 132/65 Pulse Oximetry 98 98 <Xi Reynoso DO - Last Filed: 02/28/19 03:38> Orders Ordered: Discontinued Medications Ketorolac Tromethamine (Toradol) 60 mg IM NOW ONE Stop: 02/27/19 19:03 Last Admin: 02/27/19 19:04 Dose: 60 mg Vital Signs - 8 hr 02/27/19 17:45 02/27/19 19:09 Temperature 98.4 F 98.4 F Pulse Rate 88 73 Respiratory Rate 18 16 Blood Pressure 136/88 Blood Pressure [R Arm] 132/65 Pulse Oximetry 98 98 MDM - Male Genitourinary <SOMMER Zavaleta - Last Filed: 02/27/19 20:21> Lab Data Lab Results 02/27/19 Range/Units 17:55 Ur Chlamydia DNA (PCR) Not detected N gonorrhoeae DNA (PCR) Not detected Urine Dip Bedside Urine Glucose Negative Bedside Urine Bilirubin + 1 Bedside Urine Ketone - Negative Urine Specific [place] 1.015 Bedside Urine Occult Blood - Negative Bedside Urine pH 7.5 Bedside Urine Protein +/- 15 Bedside Urine Urobilinogen 1+ 2mg Bedside Urine Nitrite - Negative Bedside Urine Leukocytes - Negative Esterase Imaging Data Scrotum ultrasound: Radiologist's impression: Ryan Hobson 28 M [address] [address] Ultrasound Report Signed Patient: GerardcaesarRyan rogel GMR#: [id number] : 1990Acct:[id number] Age/Sex: MDate of Service: 06/11/19 Loc: ED Accession Number: [id number] Procedure: US scrotum Ordering Provider: Neena CainBC PROCEDURE: US SCROTUM INDICATIONS: LEFT SCROTAL PAIN TECHNIQUE: Real-time scanning was performed of the scrotum and testicles, with image documentation. Color and pulse Doppler interrogation was performed of both testicles. COMPARISON: None. FINDINGS: Right: Testicle is normal in size at 5.4 x 2.9 x 3.5 cm, and homogenous in echotexture. Epididymis is normal in overall size and morphology. No hydrocele or varicocel es. Overlying scrotal skin is normal in thickness. Left: Testicle is normal in size at 5.3 x 2.6 x 2.9 cm, and homogeneous in echotexture. Epididymis is normal in overall size and morphology. No hydrocele or varicoceles. Overlying scrotal skin is normal in thickness. Doppler: Color and pulse Doppler demonstrate normal and symmetric arterial flow in both testicles. IMPRESSION: Negative scrotal ultrasound. No explanation for left scrotal pain. Dictated by: Sherie Blair M.D. on 02/27/2019 at 18:38 Approved by: Sherie Blair M.D. on 02/27/2019 at 18:39 [facility] Narrative Medical decision making narrative: The patient is a 28-year-old male who presents with testicular pain. He states this has been going on and off for years, worse over the past several days. He has a negative UA, negative his gonorrhea chlamydia and a normal ultrasound. His pain responded very well to the Toradol. He does not have an acute exam. Discussed at length continued anti-inflammatories as well as following up with primary care provider. Discussed coming back to the emergency department for any acute findings. Patient has no questions or concerns upon discharge. <Xi Reynoso, - Last Filed: 02/28/19 03:38> Lab Data Lab Results 02/27/19 Range/Units 17:55 Ur Chlamydia DNA (PCR) Not detected N gonorrhoeae DNA (PCR) Not detected Urine Dip Bedside Urine Glucose Negative Bedside Urine Bilirubin + 1 Bedside Urine Ketone - Negative Urine Specific [place] 1.015 Bedside Urine Occult Blood - Negative Bedside Urine pH 7.5 Bedside Urine Protein +/- 15 Bedside Urine Urobilinogen 1+ 2mg Bedside Urine Nitrite - Negative Bedside Urine Leukocytes - Negative Esterase Discharge Plan Departure Patient Disposition: Home Clinical Impression: Left testicular pain Discharge Date/Time: 02/27/19 20:22 Interventions: ED Discharge Assessment Last Done: 02/27/19 20:22 Activity Restrictions/Additional Instructions: Your ultrasound came back with no acute findings today. Your urine test came back negative. Please follow up with a primary care provider. Please come back to the emergency department for any acute concerns. I suggest using NSAIDs such as ibuprofen. Wait 8 hours before you take a dose after her dose in the emergency department. Referrals: Lance Good MD [Primary Care Provider] - <Xi Reynoso DO - Last Filed: 02/28/19 03:38> Cosign ED Attending Rosaature Attestation: I was immediately available in the department for consultation. Documentation has been reviewed. I agree with as sessment and plan.
== END 2019-02-27 20:22 | disposition home or self-care (01) ==
PROVIDERS: Emergency Provider Nurse Practitioner Family; Family Provider Family Medicine; PCP Family Medicine
DX: N50.812 Left testicular pain (principal)
CPT/HCPCS: 76830; 76870; 81003; 87491; 87591; 96372; 99282; 99283; J1885

== ENCOUNTER 2020-03-24 16:25 | Emergency (ER) | payer OTHER, SELFPAY ==
[2020-03-24 16:33] VITALS: BP 132/74; PULSE 86; RESP 18; TEMP 37.2; O2SAT 99
--- NOTE | 2020-03-24 17:00 | DI.RAD.S_ITS ---
PROCEDURE: XR KNEE RT 3V INDICATIONS: right knee pain TECHNIQUE: 3 views of the knee were acquired. COMPARISON: Merged with [facility], KNEE 3V LEFT, 12/20/2016, 16:22. Merged with [facility], KNEE 3V RIGHT, 12/20/2016, 16:19. FINDINGS: Bones: No fractures or dislocations. No suspicious bony lesions. Soft tissues: No joint effusion. No suspicious soft tissue calcifications. IMPRESSION: No trauma found, but a slight effusion may be present on the lateral view, without intra-articular loose body. Dictated by: Ant Rojas M.D. on 03/24/2020 at 17:18 Approved by: Ant Rojas M.D. on 03/24/2020 at 17:19
[2020-03-24] MEDS: KETOROLAC 60 MG/2 ML VIAL 30 MG IM (19:35)
--- NOTE | 2020-03-24 20:10 | ED.LOWEXIN ---
HPI - Extremity Injury (Lower) <SOMMER Zavaleta - Last Filed: 03/24/20 20:15> General Chief Complaint: Extremity Injury, Lower Stated Complaint: RIGHT KNEE INJURY Time Seen by Provider: 03/24/20 18:26 Source: patient Mode of arrival: Ambulatory Limitations: physical limitation History of Present Illness HPI Narrative: The patient is a 29-year-old male a nonsmoker who denies pertinent medical history presents with a chief complaint of right knee pain. He states he twisted and word 2 days ago, felt a pop and a crack. He was seen in outside facility walk-in clinic, but they did not have x-ray capabilities. He presents to the emergency department requesting an x-ray. He has not taken anything for the pain other than Motrin. The walk-in clinic did give him a brace which she has been wearing. He has been ambulating on it steadily, and has been going to work as usual. He took ibuprofen approximately 5 hours prior to arrival to the emergency department. Denies any previous injuries to that knee. Related Data Previous Rx's Medication Instructions Recorded ketorolac 10 mg PO TID PRN #15 tab 03/24/20 Allergies Allergy/AdvReac Type Severity Reaction Status Date / Time amoxicillin [AMOXICILLIN] Allergy Severe HIVES Verified 02/27/19 17:45 Penicillins [PENICILLINS] Allergy Unknown Verified 02/27/19 17:45 Review of Systems <SOMMER Zavaleta - Last Filed: 03/24/20 20:15> Review of Systems Narrative: GENERAL: Denies chills, fatigue, malaise, fever, sweats. HEENT: Denies sinus pain, ear pain, sore throat, difficulty swallowing, dizziness. RESPIRATORY: Denies dyspnea, cough, wheezing, hemoptysis, sputum. CARDIOVASCULAR: Denies chest pain, palpitations, orthopnea, edema, GASTROINTESTINAL: Denies nausea, vomiting, abdominal pain, diarrhea, constipation, melena. : Denies dysuria, frequency, incontinence, hematuria, urinary retention. MUSCULOSKELETAL: See HPI SKIN: Denies rash, skin lesions, or other NEUROLOGIC: Denies weakness, headache, numbness, change in speech, confusion, seizures, incoordination. PSYCHIATRIC: No concerning psychosocial issues. 12 point review of systems is negative except for those stated above Patient History <SOMMER Zavaleta - Last Filed: 03/24/20 20:15> Medical History Healthy adult (Acute) Social History Smoking Status: Never smoker Smoking Status: Never smoker tobacco type: smokeless tobacco alcohol intake frequency: holidays/special occasions only Substance Use Type: does not use Exam <SOMMER Zavaleta - Last Filed: 03/24/20 20:15> Narrative Exam Narrative: GENERAL: This is a well-nourished, well-developed patient, in no acute distress HEAD: Atraumatic. Normocephalic. No temporal or scalp tenderness. EYES: Pupils equal round and reactive. Extraocular motions intact. No scleral icterus. No injection or drainage. ENT: Nose without bleeding, purulent drainage or septal hematoma. Throat without erythema, tonsillar hypertrophy or exudate. Uvula midline. Airway patent. NECK: Trachea midline. No JVD or lymphadenopathy. Supple, nontender, no meningeal signs. CARDIOVASCULAR: Regular rate and rhythm RESPIRATORY: No cough. No increased respiratory effort. No accessory muscle use. EXTREMITIES: Pain to palpation noted on medial aspect of right knee. Able to weightbear. Positive pedal pulses. Negative varus valgus, negative posterior anterior drawer. Small knee effusion noted. Negative Debra. BACK: Nontender without deformity or crepitance. No flank tenderness. NEURO: AOx3. SKIN: No rash or erythema on visible skin. No erythema or ecchymosis noted on right knee. Initial Vital Signs Initial Vital Signs: Vital Signs Temperature 99.0 F 03/24/20 16:33 Pulse Rate 86 03/24/20 16:33 Respiratory Rate 18 03/24/20 16:33 Blood Pressure 132/74 03/24/20 16:33 Pulse Oximetry 99 03/24/20 16:33 <Don Wan MD - Last Filed: 03/24/20 20:41> Initial Vital Signs Initial Vital Signs: Vital Signs Temperature 99.0 F 03/24/20 16:33 Pulse Rate 86 03/24/20 16:33 Respiratory Rate 18 03/24/20 16:33 Blood Pressure 132/74 03/24/20 16:33 Pulse Oximetry 99 03/24/20 16:33 Scores <SOMMER Zavaleta - Last Filed: 03/24/20 20:15> GCS [place] coma scale eye opening: Spontaneous [place] coma scale verbal response: Orientated [place] coma scale motor response: Obey commands [place] coma scale total score: 15 Course <SOMMER Zavaleta - Last Filed: 03/24/20 20:15> Orders Ordered: ED Orders 03/24/20 17:00 XR knee RT 3V Stat Discontinued Medications Ketorolac Tromethamine (Toradol) 30 mg IM NOW ONE Stop: 03/24/20 18:44 Last Admin: 03/24/20 19:35 Dose: 30 mg Documented by: FIONA Vital Signs Vital signs: Vital Signs - 8 hr 03/24/20 16:33 Temperature 99.0 F Pulse Rate 86 Respiratory Rate 18 Blood Pressure 132/74 Pulse Oximetry 99 <Don Wan MD - Last Filed: 03/24/20 20:41> Orders Ordered: ED Orders 03/24/20 17:00 XR knee RT 3V Stat Discontinued Medications Ketorolac Tromethamine (Toradol) 30 mg IM NOW ONE Stop: 03/24/20 18:44 Last Admin: 03/24/20 19:35 Dose: 30 mg Documented by: FIONA Vital Signs Vital signs: Vital Signs - 8 hr 03/24/20 16:33 Temperature 99.0 F Pulse Rate 86 Respiratory Rate 18 Blood Pressure 132/74 Pulse Oximetry 99 MDM - Extremity Injury (Lower) <SOMMER Zavaleta - Last Filed: 03/24/20 20:15> Imaging Data Extremity x-ray #1: Radiologist's Impression: [facility] [place] [id number] XRay Report Signed Patient: Ryan Hobson GMR#: [id number] : 1990Acct:[id number] Age/Sex: 29 / MDate of Service: 03/24/20 Loc: ED Accession Number: [id number] Procedure: XR knee RT 3V Ordering Provider: Don Wan MD PROCEDURE: XR KNEE RT 3V INDICATIONS: right knee pain TECHNIQUE: 3 views of the knee were acquired. COMPARISON: [facility], , KNEE 3V LEFT, 12/20/2016, 16:22. [facility], CR, KNEE 3V RIGHT, 12/20/2016, 16:19. FINDINGS: Bones: No fractures or dislocations. No suspicious bony lesions. Soft tissues: No joint effusion. No suspicious soft tissue calcifications. IMPRESSION: No trauma found, but a slight effusion may be present on the lateral view, without intra-articular loose body. Dictated by: Ant Rojas M.D. on 03/24/2020 at 17:18 Approved by: Ant Rojas M.D. on 03/24/2020 at 17:19 MDM Narrative Medical decision making narrative: The patient is a 29-year-old male who presents with a chief complaint of knee pain. He is neurovascularly intact, able to ambulate well. He has a negative x-ray. I discussed at length rest ice compression elevation as well as [id number] pain medications as needed and able. I discussed at length the importance of following up with primary care provider as well as the possibility of physical therapy and for further imaging. Did give a prescription of Toradol, discussed to not take with ibuprofen. Discussed come back to the ER for acute concerns. Patient has no questions or concerns upon discharge and states understanding of return precautions as well as follow-up care. Discharge Plan Departure Patient Disposition: Home Clinical Impression: Acute pain of right knee Discharge Date/Time: 03/24/20 19:38 Instructions: DI for Knee Sprain, How To Perform RICE (Rest, Ice, Compress, Elevate), DI for Knee Pain Activity Restrictions/Additional Instructions: Thank you for trusting us with your care today As I discussed, your x-ray shows no acute fracture. This does not rule out a soft tissue injury such as a ligament or tendon injury. It is important that you follow up with primary care provider, especially if worsening or no improvement. There can be fractures that did not show up on initial x-ray. I have given you a prescription of Toradol. This is an NSAID. Do not combine it with other NSAIDs such as Aleve or ibuprofen. I suggest taking it with some food, as it can irritate your stomach. I sent this prescription to [facility]. As discussed please follow-up with primary care provider in the next few days. You may benefit from further imaging and/or physical therapy. I have given you a note for light duty at work. Please come back to the emergency department for any acute concerns Prescriptions: New ketorolac 10 mg tablet 10 mg PO TID PRN (Reason: pain) Qty: 15 RF: 0 Referrals: Lance Good MD [Primary Care Provider] - Stand Alone Forms: Work Release Note
== END 2020-03-24 19:38 | disposition home or self-care (01) ==
PROVIDERS: Emergency Provider Nurse Practitioner Family; Family Provider Family Medicine; PCP Family Medicine
DX: M25.561 Pain in right knee (principal)
CPT/HCPCS: 73562; 96372; 99283; J1885